=== PATIENT | male | born 1955 | race Caucasian/White ===

== ENCOUNTER 2018-05-28 16:45 | Emergency (ER) | payer BC, OTHER ==
[~2018-05-28] VITALS: Ht 190.5 cm; Wt 114.8 kg
[~2018-05-28 16:45] MED LIST: CLIN300C85 PO; [UNRECOGNIZED DRUG - CODE] PO
[2018-05-28 17:15] LABS: BASOPHILS % (AUTO) 0.2 % (0-1); EOSINOPHILS # (AUTO) 0.1 X10'3 (0-0.9); EOSINOPHILS % (AUTO) 1.9 % (0-6); HEMATOCRIT 45.4 % (42.0-52.0); HEMOGLOBIN 15.6 g/dl (14.0-17.9); LYMPHOCYTES # (AUTO) 1.9 X10'3 (1.1-4.8); LYMPHOCYTES % (AUTO) 26.7 % (21-51); MEAN CORPUSCULAR HEMOGLOBIN 31.4 PG (27.0-31.0); MEAN CORPUSCULAR HGB CONC 34.3 % (33.0-36.5); MEAN CORPUSCULAR VOLUME 91.3 FL (78-98); MEAN PLATELET VOLUME 9.4 FL (7.4-10.4); MONOCYTES # (AUTO) 0.9 X10'3 (0-0.9); MONOCYTES % (AUTO) 12.1 % (2-12); NEUTROPHILS # (AUTO) 4.2 X10'3 (1.8-7.7); NEUTROPHILS % (AUTO) 59.1 % (42-75); PLATELET COUNT 175 X10'3 (140-440); RED BLOOD COUNT 4.97 X10'6 (4.70-6.10); RED CELL DISTRIBUTION WIDTH 13.9 % (11.5-14.5); WHITE BLOOD COUNT 7.1 X10'3 (4.5-11.0)
[2018-05-28 17:37] LABS: PARTIAL THROMBOPLASTIN TIME 26 SECONDS (22-32)
[2018-05-28 17:42] LABS: ALANINE AMINOTRANSFERASE 57 U/L (12-78); ALBUMIN 4.1 G/DL (3.4-5.0); ALBUMIN/GLOBULIN RATIO 1.4 (1.1-1.5); ALKALINE PHOSPHATASE 61 IU/L (46-116); ANION GAP 8 (8-16); ASPARTATE AMINO TRANSFERASE 26 U/L (10-37); BILIRUBIN,TOTAL 0.2 MG/DL (0.1-1.0); BLOOD UREA NITROGEN 19 MG/DL (7-18); BUN/CREATININE RATIO 20.7 (5.4-32.0); CALCIUM 8.5 MG/DL (8.5-10.1); CHLORIDE 107 MMOL/L (99-107); CREATININE 0.92 MG/DL (0.60-1.10); GLUCOSE 102 MG/DL (70-104); POTASSIUM 3.8 MMOL/L (3.5-5.1); SODIUM 141 MMOL/L (135-145); TOTAL CARBON DIOXIDE 25.6 MMOL/L (24-32); TOTAL PROTEIN 7.1 G/DL (6.4-8.2); eGFR 83 ML/MIN
[2018-05-28] MEDS ORDERED: LOSA25TA96 PO (20:52)
[2018-05-28] MEDS ORDERED: SUCR1TAB34 PO (20:52)
[2018-05-28] MEDS ORDERED: LACTC PO (20:52)
[2018-05-28] MEDS ORDERED: NITR0.4T48 SL (20:55)
[2018-05-28] MEDS ORDERED: aspirin 325mg tablet ONE (21:02)
[2018-05-28 21:09] VITALS: BP 158/86
== END 2018-05-28 21:11 | disposition home or self-care (01) ==
LOC: EDUNIT# 16:45 → ER 16:46
DX: R07.9 Chest pain, unspecified (principal); I10 Essential (primary) hypertension; Z98.890 Other specified postprocedural states; Z88.1 Allergy status to other antibiotic agents; Z88.5 Allergy status to narcotic agent; Z79.899 Other long term (current) drug therapy
CPT/HCPCS: 36415; 71045; 80053; 84484; 85025; 85610; 85730; 93005; 99285

== ENCOUNTER 2018-08-06 11:24 | Day surgery (SDC) | payer BC ==
[2018-08-02 17:04] LABS: BASOPHILS % (AUTO) 0.3 % (0-1); EOSINOPHILS # (AUTO) 0.1 X10'3 (0-0.9); EOSINOPHILS % (AUTO) 1.9 % (0-6); HEMATOCRIT 44.1 % (42.0-52.0); HEMOGLOBIN 14.7 g/dl (14.0-17.9); LYMPHOCYTES # (AUTO) 1.6 X10'3 (1.1-4.8); LYMPHOCYTES % (AUTO) 26.7 % (21-51); MEAN CORPUSCULAR HEMOGLOBIN 30.7 PG (27.0-31.0); MEAN CORPUSCULAR HGB CONC 33.4 % (33.0-36.5); MEAN CORPUSCULAR VOLUME 91.9 FL (78-98); MEAN PLATELET VOLUME 9.6 FL (7.4-10.4); MONOCYTES # (AUTO) 0.7 X10'3 (0-0.9); MONOCYTES % (AUTO) 11.2 % (2-12); NEUTROPHILS # (AUTO) 3.6 X10'3 (1.8-7.7); NEUTROPHILS % (AUTO) 59.9 % (42-75); PLATELET COUNT 216 X10'3 (140-440); RED CELL DISTRIBUTION WIDTH 13.9 % (11.5-14.5); WHITE BLOOD COUNT 6.1 X10'3 (4.5-11.0)
[2018-08-02 17:12] LABS: ALBUMIN 4.3 G/DL (3.4-5.0); ANION GAP 10 (8-16); BLOOD UREA NITROGEN 16 MG/DL (7-18); BUN/CREATININE RATIO 18.6 (5.4-32.0); CALCIUM 8.8 MG/DL (8.5-10.1); CHLORIDE 107 MMOL/L (99-107); CREATININE 0.86 MG/DL (0.60-1.10); GLUCOSE 101 MG/DL (70-104); SODIUM 143 MMOL/L (135-145); TOTAL CARBON DIOXIDE 26.2 MMOL/L (24-32); eGFR 90 ML/MIN
[2018-08-02 17:13] LABS: POTASSIUM 4.2 MMOL/L (3.5-5.1)
[2018-08-02 17:20] LABS: PARTIAL THROMBOPLASTIN TIME 27 SECONDS (22-32); PROTHROMBIN TIME 9.9 SECONDS (9.0-12.0)
[~2018-08-06] VITALS: Ht 190.5 cm; Wt 110.7 kg
[2018-08-06] VITALS (9 sets, daily range): BP systolic 94–134; BP diastolic 41–76
[~2018-08-06 11:24] MED LIST changes: -CLIN300C85 PO; +LACTC PO; +LOSA25TA96 PO; +NITR0.4T48 SL; +SUCR1TAB34 PO; -[UNRECOGNIZED DRUG - CODE] PO
[2018-08-06] MEDS ORDERED: LORazepam 0.5 MG tablet PO PRN (11:50)
[2018-08-06] MEDS ORDERED: normal saline 1000ml 1,000 ML IV SCH (11:50)
[2018-08-06] MEDS ORDERED: diphenhydrAMINE 25mg capsule PO PRN (11:50)
[2018-08-06] MEDS ORDERED: MONT10TA21 PO (12:01)
[2018-08-06] MEDS ORDERED: FINA5TAB11 PO (12:01)
[2018-08-06] MEDS ORDERED: ACET-812 PO (12:01)
[2018-08-06] MEDS ORDERED: ASPI-1265 PO (12:01)
[2018-08-06] MEDS ORDERED: NAPR220C15 PO (12:01)
[2018-08-06] MEDS ORDERED: OMEG1CAP13 (12:01)
[2018-08-06] MEDS ORDERED: NITR0.4T SL (12:01)
[2018-08-06] MEDS ORDERED: ALB0.5UD IH (12:01)
[2018-08-06] MEDS ORDERED: RANI150T44 PO (12:01)
[2018-08-06] MEDS ORDERED: AMLO2.5T4 PO (12:01)
[2018-08-06] MEDS ORDERED: LISI10TA4 PO (12:01)
[2018-08-06] MEDS ORDERED: MULT-38 PO (12:01)
[2018-08-06] MEDS ORDERED: TERA10CA4 PO (12:01)
[2018-08-06] MEDS ORDERED: LIDOcaine 1% (10mg/ml)w/preservative injection 20ml MDV ONE (14:05)
[2018-08-06] MEDS ORDERED: iohexol 350MG/ML 100ml bottle IV ONE (14:05)
[2018-08-06] MEDS ORDERED: heparin 1,000 UNITS/NS 500ml 500 ML ONE ×2 (14:05)
[2018-08-06] MEDS ORDERED: midazolam 2 mg/2 ml injection ONE (14:30)
[2018-08-06] MEDS ORDERED: fentaNYL/PF 50MCG/1 ML 2ML syringe ONE (14:30)
[2018-08-06] MEDS ORDERED: proCHLORperazine 10 MG/2 ml inj ONE (14:37)
[2018-08-06] MEDS ORDERED: nitroGLYCERIN 0.4mg SUBLingual tab SL PRN (15:20)
[2018-08-06] MEDS ORDERED: OXAZEpam 15mg capsule PO PRN (15:25)
[2018-08-06] MEDS ORDERED: ondansetron/PF 4mg/2ml inj IV PRN (15:25)
[2018-08-06] MEDS ORDERED: proCHLORperazine 10 MG/2 ml inj IV PRN (15:25)
[2018-08-06] MEDS ORDERED: HYDROcodone/acetaminophen 10/325mg tab PO PRN (15:25)
[2018-08-06] MEDS ORDERED: HYDROcodone/acetaminophen 5mg/325mg tablet PO PRN (15:25)
== END 2018-08-06 19:00 | disposition home or self-care (01) ==
LOC: SSTAY O 11:24
PROVIDERS: ATTEND Internal Medicine Interventional Cardiology
DX: R94.39 Abnormal result of other cardiovascular function study (principal); I10 Essential (primary) hypertension; E78.5 Hyperlipidemia, unspecified; G47.33 Obstructive sleep apnea (adult) (pediatric); Z88.1 Allergy status to other antibiotic agents; Z88.6 Allergy status to analgesic agent; Z88.8 Allergy status to other drugs, medicaments and biological substances
CPT/HCPCS: 36415; 80048; 85025; 85610; 85730; 93005; 93458; 99152; A6257; C1769; J0780; J1644; J2001; J2250; J3010; J7030; Q9967; A4620